=== PATIENT | female | born 1960 | race Caucasian/White ===

== ENCOUNTER 2017-02-12 13:39 | Emergency (ER) | payer MEDICARE ==
[~2017-02-12] VITALS: Ht 160 cm; Wt 73.5 kg
--- NOTE | 2017-02-12 14:20 | NUR ---
PT BIB FAMILY FOR HEADACHE X 2 WEEKS, DX WITH HTN X 2 DAYS [employer], ON HTN MEDS. VSS. SEEN BY MD FOR EVAL. NAD NOTED. SAFETY AND COMFORT MEASURES PROVIDED. WILL MONITOR.
[2017-02-12 15:27] LABS: BASOPHILS # (AUTO) 0.1 /CMM (0.0-0.2); BASOPHILS % (AUTO) 0.6 % (0.0-2.0); EOSINOPHILS # (AUTO) 0.1 /CMM (0.0-0.7); EOSINOPHILS % (AUTO) 1.1 % (0.0-6.0); HEMATOCRIT 41 % (33-45); HEMOGLOBIN 13.5 g/dL (11.5-14.8); LYMPHOCYTES # (AUTO) 2.4 /CMM (0.8-4.8); LYMPHOCYTES % (AUTO) 23.8 % (20.0-44.0); MEAN CORPUSCULAR HEMOGLOBIN 29 PG (26.0-33.0); MEAN CORPUSCULAR HGB CONC 33 g/dl (31.0-36.0); MEAN CORPUSCULAR VOLUME 88 fL (82-100); MONOCYTES # (AUTO) 0.7 /CMM (0.1-1.30); NEUTROPHILS # (AUTO) 6.9 /CMM (1.8-8.9); NEUTROPHILS % (AUTO) 67.5 % (43.0-81.0); PLATELET COUNT (AUTO) 240 /CMM (150-450); RDW COEFFICIENT OF VARIATION 12.9 (11.5-15.0); WHITE BLOOD COUNT (AUTO) 10.2 K/uL (4.3-11.0)
[2017-02-12 15:39] LABS: CALCIUM, SERUM 9.3 mg/dL (8.5-10.1); CREATININE 0.7 mg/dL (0.6-1.3); POTASSIUM 3.7 mmol/L (3.5-5.1)
--- NOTE | 2017-02-12 16:08 | NUR ---
URINE SAMPLE OBTAINED, SENT.
[2017-02-12 16:18] LABS: APPEARANCE,URINE CLEAR (CLEAR); BILIRUBIN,URINE NEGATIVE (NEGATIVE); BLOOD, URINE TRACE-INTA Ery/uL (NEGATIVE); COLOR,URINE YELLOW (YELLOW); KETONES,URINE NEGATIVE (NEGATIVE); LEUKOCYTE ESTERASE ,URINE TRACE (NEGATIVE); NITRITE, URINE NEGATIVE (NEGATIVE); PROTEIN,URINE NEGATIVE (NEGATIVE); UGLUCOSE NEGATIVE (NEGATIVE); UROBILINOGEN,URINE 0.2 EU/dL (0.2)
[2017-02-12 16:36] LABS: BACTERIA,URINE Rare /HPF (None Seen); SQUAMOUS EPITHELIAL CELL,UR 0-2 /HPF (None Seen)
--- NOTE | 2017-02-12 16:51 | NUR ---
Patient discharged to home in stable condition. Written and verbal after care instructions given. Patient verbalizes understanding of instruction.
[2017-02-12 16:52] VITALS: BP 122/71
== END 2017-02-12 16:52 | disposition home or self-care (01) ==
LOC: EDBD 13:42 → ER 13:42
DX: R51 Headache (principal); R07.89 Other chest pain; I10 Essential (primary) hypertension
CPT/HCPCS: 36415; 80048-TC; 81000-TC; 85025-TC; A4606; Z7610

== ENCOUNTER 2020-03-07 15:13 | Emergency (ER) | payer MEDICARE, MEDICAID ==
[~2020-03-07] VITALS: Ht 167.6 cm; Wt 77.1 kg
--- NOTE | 2020-03-07 15:20 | NUR ---
BED 1 PT BIB SELF C/O L HAND 2ND DIGIT LACERATION WITH BLEEDING NOTED. APPLIED PRESSURE DRESSING. PT COMPLAINS OF DISCOMFORT 08/22. VS CHECKED. AWAITING MD DAS.
--- NOTE | 2020-03-07 15:43 | NUR ---
PT SEEN BY
[2020-03-07] MEDS ORDERED: LIDOCAINE /MPF 1% VIAL 5 ML VIAL ONE (15:45)
--- NOTE | 2020-03-07 15:46 | NUR ---
WOUND CARE BEING DONE BY BEDSIDE.
--- NOTE | 2020-03-07 15:54 | NUR ---
MD BY BEDSIDE PERFORMING STITCHES ON PTS L HAND 2ND DIGIT LACERATION
[2020-03-07] MEDS ORDERED: LIDOCAINE 1% INJ 50 ML MDV IJ ONE (16:00)
[2020-03-07] MEDS ORDERED: TDAP [DIPH/PERTUSSIS/TET] 0.5 ML VIAL IM ONE ×2 (16:00→16:03)
--- NOTE | 2020-03-07 16:07 | NUR ---
Patient discharged to home in stable condition. Written and verbal after care instructions given. Patient verbalizes understanding of instruction.
[2020-03-07 16:08] VITALS: BP 127/59
== END 2020-03-07 16:08 | disposition home or self-care (01) ==
LOC: ER 15:16
DX: S61.211A Laceration without foreign body of left index finger without damage to nail, initial encounter (principal); I10 Essential (primary) hypertension; Z98.890 Other specified postprocedural states; Z88.8 Allergy status to other drugs, medicaments and biological substances; W26.8XXA Contact with other sharp object(s), not elsewhere classified, initial encounter; Y93.E9 Activity, other interior property and clothing maintenance; Y92.098 Other place in other non-institutional residence as the place of occurrence of the external cause; Y99.8 Other external cause status
CPT/HCPCS: 12001; 90471; 90715; 99283; J3490